=== PATIENT | male | born 1950 | race Caucasian/White ===

== ENCOUNTER 2024-01-10 11:19 | Emergency (ER) | payer MEDICARE ==
[~2024-01-10] VITALS: Ht 180.3 cm; Wt 83.0 kg
[2024-01-10 11:54] LABS: BASOPHILS # (AUTO) 0.1 X10'3 (0-0.2); EOSINOPHILS # (AUTO) 0.2 X10'3 (0-0.9); EOSINOPHILS % (AUTO) 2.1 % (0-6); HEMATOCRIT 41.5 % (42.0-52.0); HEMOGLOBIN 13.8 g/dl (14.0-17.9); LYMPHOCYTES # (AUTO) 1.6 X10'3 (1.1-4.8); LYMPHOCYTES % (AUTO) 17.7 % (21-51); MEAN CORPUSCULAR HEMOGLOBIN 30.8 PG (27.0-31.0); MEAN CORPUSCULAR HGB CONC 33.2 g/dL (33.0-36.5); MEAN CORPUSCULAR VOLUME 92.8 FL (78-98); MEAN PLATELET VOLUME 9.1 FL (7.4-10.4); MONOCYTES # (AUTO) 0.9 X10'3 (0-0.9); MONOCYTES % (AUTO) 10.2 % (2-12); NEUTROPHILS # (AUTO) 6.3 X10'3 (1.8-7.7); PLATELET COUNT 202 X10'3 (140-440); RED BLOOD COUNT 4.48 X10'6 (4.70-6.10); RED CELL DISTRIBUTION WIDTH 14.4 % (11.5-14.5); WHITE BLOOD COUNT 9.2 X10'3 (4.5-11.0)
[2024-01-10] MEDS: diltiazem 5mg/ml 5ml inj. IV ONE (11:55)
[2024-01-10 12:13] LABS: ALBUMIN 3.8 G/DL (3.4-5.0); ANION GAP 10 (8-16); BLOOD UREA NITROGEN 22 MG/DL (7-18); BUN/CREATININE RATIO 28.6 (10.0-20.0); CALCIUM 8.9 MG/DL (8.5-10.1); CHLORIDE 106 MMOL/L (99-107); CREATININE 0.77 MG/DL (0.60-1.10); GLUCOSE 100 MG/DL (70-104); POTASSIUM 3.9 MMOL/L (3.5-5.1); PRO BRAIN NATRIURETIC PEPTIDE 3645 PG/ML (0-125); SODIUM 140 MMOL/L (135-145); TOTAL CARBON DIOXIDE 24.1 MMOL/L (24-32); eCRCL 92 ML/MIN; eGFR > 90 ML/MIN
[2024-01-10] MEDS ORDERED: DILT-88 PO (12:53)
[2024-01-10] MEDS ORDERED: RIVA20TA PO (12:53)
[2024-01-10] MEDS: rivaroxaban 20mg tablet PO ONE (13:18)
[2024-01-10] MEDS: diltiazem SR 60mg capsule (twice daily) PO ONE (13:18)
[2024-01-10 13:19] VITALS: BP 119/90; PULSE 140; RESP 20; TEMP 98.4; O2SAT 96
== END 2024-01-10 13:26 | disposition home or self-care (01) ==
LOC: ER 11:20
DX: I48.20 Chronic atrial fibrillation, unspecified (principal)
CPT/HCPCS: 36415; 71045; 80048; 83735; 83880; 84484; 85025; 93005; 96374; 99285; J3490

== ENCOUNTER 2024-01-14 09:54 | Inpatient (IN) | payer MEDICARE ==
[~2024-01-14] VITALS: Ht 177.8 cm; Wt 71.6 kg
[~2024-01-14 09:54] MED LIST: DILT-88 PO; RIVA20TA PO
[2024-01-14 10:28] LABS: BASOPHILS # (AUTO) 0.1 X10'3 (0-0.2); BASOPHILS % (AUTO) 1.4 % (0-1); EOSINOPHILS # (AUTO) 0.2 X10'3 (0-0.9); EOSINOPHILS % (AUTO) 3.5 % (0-6); LYMPHOCYTES # (AUTO) 1.1 X10'3 (1.1-4.8); LYMPHOCYTES % (AUTO) 16.6 % (21-51); MEAN CORPUSCULAR HEMOGLOBIN 30.6 PG (27.0-31.0); MEAN CORPUSCULAR HGB CONC 33.2 g/dL (33.0-36.5); MEAN CORPUSCULAR VOLUME 92.3 FL (78-98); MEAN PLATELET VOLUME 8.9 FL (7.4-10.4); MONOCYTES # (AUTO) 0.7 X10'3 (0-0.9); MONOCYTES % (AUTO) 10.3 % (2-12); NEUTROPHILS # (AUTO) 4.6 X10'3 (1.8-7.7); NEUTROPHILS % (AUTO) 68.2 % (42-75); PLATELET COUNT 232 X10'3 (140-440); RED BLOOD COUNT 4.55 X10'6 (4.70-6.10); RED CELL DISTRIBUTION WIDTH 14.7 % (11.5-14.5); WHITE BLOOD COUNT 6.8 X10'3 (4.5-11.0)
[2024-01-14 11:13] LABS: ALANINE AMINOTRANSFERASE 67 U/L (12-78); ALBUMIN 3.5 G/DL (3.4-5.0); ALKALINE PHOSPHATASE 76 IU/L (46-116); ANION GAP 10 (8-16); ASPARTATE AMINO TRANSFERASE 38 U/L (10-37); BILIRUBIN,TOTAL 0.7 MG/DL (0.1-1.0); BLOOD UREA NITROGEN 21 MG/DL (7-18); BUN/CREATININE RATIO 29.6 (10.0-20.0); CALCIUM 9.1 MG/DL (8.5-10.1); CHLORIDE 107 MMOL/L (99-107); CREATININE 0.71 MG/DL (0.60-1.10); GLUCOSE 105 MG/DL (70-104); POTASSIUM 3.9 MMOL/L (3.5-5.1); PRO BRAIN NATRIURETIC PEPTIDE 1390 PG/ML (0-125); SODIUM 139 MMOL/L (135-145); TOTAL CARBON DIOXIDE 21.6 MMOL/L (24-32); TOTAL PROTEIN 7.1 G/DL (6.4-8.2); eCRCL 100 ML/MIN; eGFR > 90 ML/MIN
[2024-01-14] MEDS: diltiazem 5mg/ml 5ml inj. IV ONE ×2 (11:20→13:02)
[2024-01-14] MEDS: magnesium sulf-water 2g/50mL 50 ML IV ONE (11:21)
[2024-01-14] MEDS: diltiazem-NS 100mg/100ml 100 ML IV SCH ×2 (13:07→18:36)
[2024-01-14] MEDS: enoxaparin 100mg/ml syringe SUBCUT ONE (13:15)
[2024-01-14] MEDS ORDERED: potassium Cl 40MEQ/1/2NS 520ml 520 ML IV PRN (13:35)
[2024-01-14] MEDS ORDERED: magnesium hydroxide 30ml (MOM) UD suspension PO PRN (13:35)
[2024-01-14] MEDS ORDERED: mag hydrox/Alum hydrox/simeth 30ml oral suspension PO PRN (13:35)
[2024-01-14] MEDS ORDERED: magnesium Cl slow-release 64mg tablet PO PRN (13:35)
[2024-01-14] MEDS ORDERED: magnesium sulf-water 2g/50mL 50 ML IV PRN (13:35)
[2024-01-14] MEDS ORDERED: ondansetron/PF 4mg/2ml inj IV PRN (13:35)
[2024-01-14] MEDS ORDERED: magnesium sulf-water 4G/100mL 100 ML IV PRN (13:35)
[2024-01-14] MEDS ORDERED: acetaminophen 325mg tablet PO PRN (13:35)
[2024-01-14] MEDS ORDERED: potassium Cl 20 mEq SR tablet PO PRN ×2 (13:35)
[2024-01-14] MEDS: PERFLUTREN PROTEIN-A MICROSPHR (Optison) 0.22 MG/ML 3ML VIAL IV ONE (13:40)
[2024-01-14] MEDS ORDERED: furosemide 10 MG/1 ML 10ml inj IV SCH (14:05)
--- NOTE | 2024-01-14 14:52 | NUR ---
spoke to Gerber Campa, received heart healthy diet. no fluid restriction
[2024-01-14] MEDS ORDERED: RIVA20TA PO (16:56)
[2024-01-14] MEDS ORDERED: DILT-35 PO (16:56)
--- NOTE | 2024-01-14 17:07 | NUR ---
CONTACTED RESIDENT TISH REGARDING DILTIAZEM GTT BEING DC'D. PER HAI WINSTON DC'D AND PT WILL BE STARTED ON METOPROLOL PO. I ASKED FOR CLARIFICATION OF ORDERS CONSIDERING PT IS IN AFIB W/RVR AND HIS METOPROLOL ORDER IS SCHEDULED FOR TOMORROW, I AM CONCERNED HIS RATE WILL NOT BE CONTROLLED WITH THIS ORDER. RESIDENT GAVE VERBAL ORDER TO CONTINUE DILTIAZEM GTT UNTIL TOMORROW MORNING AND START METOPROLOL TOMORROW MORNING. I REQUESTED RESIDENT TO PLEASE ENTER THAT ORDER.
[2024-01-14 17:17] LABS: CHOL/HDL RATIO 2.8 (0.00-4.99); CHOLESTEROL 202 MG/DL (0-200); HDL CHOLESTEROL 71 MG/DL (35-60); LDL CHOLESTEROL 115 MG/DL (50-100); THYROID STIMULATING HORMONE 1.82 ulU/ml (0.34-4.50); TRIGLYCERIDES 53 MG/DL (20-135)
[2024-01-14 17:21] LABS: HEMOGLOBIN A1C 5.4 % (4.5-6.2)
[2024-01-14] MEDS ORDERED: diltiazem-NS 100mg/100ml 100 ML IV SCH (17:55)
[2024-01-14] MEDS: docusate sod 100mg capsule PO SCH (19:02)
[2024-01-14] MEDS: K and/or MAG REPLACEMENT MC SCH (19:02)
[2024-01-14] MEDS ORDERED: heparin, porcine 5000 units/ml vial SQ SCH (20:00)
[2024-01-14] MEDS ORDERED: apixaban 2.5mg tablet PO SCH (20:00)
[2024-01-14] MEDS ORDERED: metoprolol succinate 25mg (24-HOUR) SR. Tablet PO SCH (20:00)
[2024-01-14] MEDS: furosemide 20 MG/2 ML vial IV SCH (20:42)
[2024-01-15] VITALS (11 sets, daily range): BP systolic 95–128; BP diastolic 64–83; PULSE 87–114; RESP 16–23; TEMP 97.2–97.9; O2SAT 92–96
[2024-01-15 06:16] LABS: BASOPHILS # (AUTO) 0.1 X10'3 (0-0.2); BASOPHILS % (AUTO) 1.3 % (0-1); EOSINOPHILS # (AUTO) 0.3 X10'3 (0-0.9); EOSINOPHILS % (AUTO) 5.1 % (0-6); HEMATOCRIT 37.3 % (42.0-52.0); HEMOGLOBIN 12.7 g/dl (14.0-17.9); LYMPHOCYTES # (AUTO) 1.3 X10'3 (1.1-4.8); LYMPHOCYTES % (AUTO) 18.6 % (21-51); MEAN CORPUSCULAR HEMOGLOBIN 31.1 PG (27.0-31.0); MEAN CORPUSCULAR VOLUME 91.5 FL (78-98); MEAN PLATELET VOLUME 9.1 FL (7.4-10.4); MONOCYTES # (AUTO) 0.7 X10'3 (0-0.9); MONOCYTES % (AUTO) 11.1 % (2-12); NEUTROPHILS # (AUTO) 4.3 X10'3 (1.8-7.7); NEUTROPHILS % (AUTO) 63.9 % (42-75); PLATELET COUNT 202 X10'3 (140-440); RED BLOOD COUNT 4.08 X10'6 (4.70-6.10); RED CELL DISTRIBUTION WIDTH 14.5 % (11.5-14.5); WHITE BLOOD COUNT 6.7 X10'3 (4.5-11.0)
--- NOTE | 2024-01-15 06:30 | NUR ---
Patient in room PCU 3017. I have received report from Bri PERDOMO and had the opportunity to ask questions and assume patient care. Addendum: 01/15/24 at 0648 by Esha Morgan RN Amended: Links added.
[2024-01-15 06:32] LABS: ANION GAP 10 (8-16); BLOOD UREA NITROGEN 22 MG/DL (7-18); BUN/CREATININE RATIO 25.9 (10.0-20.0); CALCIUM 8.7 MG/DL (8.5-10.1); CHLORIDE 107 MMOL/L (99-107); CREATININE 0.85 MG/DL (0.60-1.10); GLUCOSE 92 MG/DL (70-104); SODIUM 140 MMOL/L (135-145); TOTAL CARBON DIOXIDE 23.1 MMOL/L (24-32); eCRCL 84 ML/MIN; eGFR 89 ML/MIN
--- NOTE | 2024-01-15 06:40 | NUR ---
Problems reprioritized. Patient report given, questions answered & plan of care reviewed with LEANNE Alfaro.
[2024-01-15] MEDS ORDERED: diltiazem CD 120mg capsule (once-daily) PO SCH (08:00)
[2024-01-15] MEDS ORDERED: metoprolol succinate 25mg (24-HOUR) SR. Tablet PO SCH (08:00)
[2024-01-15] MEDS: rivaroxaban 20mg tablet PO SCH (08:10)
[2024-01-15] MEDS: metoprolol succinate 25mg (24-HOUR) SR. Tablet PO SCH (08:10)
[2024-01-15 08:37] LABS: MAGNESIUM 2.1 MG/DL (1.5-2.4)
--- NOTE | 2024-01-15 18:22 | NUR ---
Problems reprioritized. Patient report given, questions answered & plan of care reviewed with Bri PERDOMO. Addendum: 01/15/24 at 1822 by Esha Morgan RN Amended: Links added.
[2024-01-15] MEDS: furosemide 40mg tablet PO SCH (19:48)
[2024-01-15] MEDS: spironolactone 25 MG tablet PO SCH (19:49)
[2024-01-16] VITALS (8 sets, daily range): BP systolic 100–129; BP diastolic 71–80; PULSE 90–124; RESP 16–19; TEMP 97.5–98.6; O2SAT 93–99
--- NOTE | 2024-01-16 06:13 | NUR ---
Patient in room PCU 3017. I have received report from Bri PERDOMO and had the opportunity to ask questions and assume patient care. Addendum: 01/16/24 at 0614 by Esha Morgan RN Amended: Links added.
--- NOTE | 2024-01-16 06:30 | NUR ---
Problems reprioritized. Patient report given, questions answered & plan of care reviewed with LEANNE Balbuena.
[2024-01-16 07:42] LABS: BASOPHILS # (AUTO) 0.1 X10'3 (0-0.2); BASOPHILS % (AUTO) 1.1 % (0-1); EOSINOPHILS # (AUTO) 0.3 X10'3 (0-0.9); EOSINOPHILS % (AUTO) 4.2 % (0-6); HEMATOCRIT 41.4 % (42.0-52.0); LYMPHOCYTES # (AUTO) 1.3 X10'3 (1.1-4.8); LYMPHOCYTES % (AUTO) 19.2 % (21-51); MEAN CORPUSCULAR HEMOGLOBIN 31.8 PG (27.0-31.0); MEAN CORPUSCULAR HGB CONC 33.9 g/dL (33.0-36.5); MEAN CORPUSCULAR VOLUME 93.8 FL (78-98); MEAN PLATELET VOLUME 9.1 FL (7.4-10.4); MONOCYTES # (AUTO) 0.7 X10'3 (0-0.9); MONOCYTES % (AUTO) 10.8 % (2-12); NEUTROPHILS # (AUTO) 4.5 X10'3 (1.8-7.7); NEUTROPHILS % (AUTO) 64.7 % (42-75); PLATELET COUNT 237 X10'3 (140-440); RED BLOOD COUNT 4.42 X10'6 (4.70-6.10); RED CELL DISTRIBUTION WIDTH 14.7 % (11.5-14.5); WHITE BLOOD COUNT 6.9 X10'3 (4.5-11.0)
[2024-01-16] MEDS: atorvastatin 20mg tablet PO SCH (08:15)
[2024-01-16 08:18] LABS: ALBUMIN 3.2 G/DL (3.4-5.0); ANION GAP 8 (8-16); BLOOD UREA NITROGEN 22 MG/DL (7-18); BUN/CREATININE RATIO 24.7 (10.0-20.0); CALCIUM 9.1 MG/DL (8.5-10.1); CHLORIDE 106 MMOL/L (99-107); CREATININE 0.89 MG/DL (0.60-1.10); GLUCOSE 92 MG/DL (70-104); MAGNESIUM 2.2 MG/DL (1.5-2.4); POTASSIUM 4.1 MMOL/L (3.5-5.1); SODIUM 142 MMOL/L (135-145); TOTAL CARBON DIOXIDE 28.3 MMOL/L (24-32); eCRCL 80 ML/MIN; eGFR 84 ML/MIN
--- NOTE | 2024-01-16 18:35 | NUR ---
Problems reprioritized. Patient report given, questions answered & plan of care reviewed with Daniela PERDOMO. Addendum: 01/16/24 at 1836 by Esha Morgan RN Amended: Links added.
[2024-01-17] VITALS (8 sets, daily range): BP systolic 92–104; BP diastolic 40–74; PULSE 92–107; RESP 13–20; TEMP 97.6–98.1; O2SAT 94–97
--- NOTE | 2024-01-17 06:16 | NUR ---
Patient in room U 3017. I have received report from Daniela PERDOMO and had the opportunity to ask questions and assume patient care. Addendum: 01/17/24 at 0616 by Esha Morgan RN Amended: Links added.
[2024-01-17 07:38] LABS: BASOPHILS # (AUTO) 0.1 X10'3 (0-0.2); EOSINOPHILS # (AUTO) 0.4 X10'3 (0-0.9); LYMPHOCYTES # (AUTO) 1.5 X10'3 (1.1-4.8); MEAN PLATELET VOLUME 9.1 FL (7.4-10.4); NEUTROPHILS # (AUTO) 4.4 X10'3 (1.8-7.7)
[2024-01-17 07:40] LABS: BASOPHILS % (AUTO) 1.2 % (0-1); EOSINOPHILS % (AUTO) 4.9 % (0-6); HEMATOCRIT 39.2 % (42.0-52.0); HEMOGLOBIN 13.3 g/dl (14.0-17.9); LYMPHOCYTES % (AUTO) 21.4 % (21-51); MEAN CORPUSCULAR HEMOGLOBIN 31.4 PG (27.0-31.0); MEAN CORPUSCULAR VOLUME 92.5 FL (78-98); MONOCYTES # (AUTO) 0.8 X10'3 (0-0.9); NEUTROPHILS % (AUTO) 61.5 % (42-75); PLATELET COUNT 230 X10'3 (140-440); RED BLOOD COUNT 4.24 X10'6 (4.70-6.10); RED CELL DISTRIBUTION WIDTH 14.5 % (11.5-14.5); WHITE BLOOD COUNT 7.2 X10'3 (4.5-11.0)
[2024-01-17 08:05] LABS: ALBUMIN 3.1 G/DL (3.4-5.0); ANION GAP 8 (8-16); BLOOD UREA NITROGEN 23 MG/DL (7-18); BUN/CREATININE RATIO 27.1 (10.0-20.0); CHLORIDE 107 MMOL/L (99-107); CREATININE 0.85 MG/DL (0.60-1.10); GLUCOSE 89 MG/DL (70-104); SODIUM 141 MMOL/L (135-145); TOTAL CARBON DIOXIDE 26.3 MMOL/L (24-32); eCRCL 84 ML/MIN; eGFR 89 ML/MIN
[2024-01-17] MEDS: metoprolol succinate 25mg (24-HOUR) SR. Tablet PO SCH (09:17)
[2024-01-17] MEDS: enoxaparin 40mg/0.4ml syringe SUBCUT SCH (09:18)
--- NOTE | 2024-01-17 11:43 | NUR ---
Dr Altamirano informed of Pt SBP 96 and the inability to administer Lasix and Aldactone. She requested I recheck BP at 1400. If SBP greater than 100 we can give these meds.
[2024-01-17] MEDS: spironolactone 25 MG tablet PO SCH (13:48)
[2024-01-17] MEDS: furosemide 40mg tablet PO SCH (13:48)
--- NOTE | 2024-01-17 18:39 | NUR ---
Problems reprioritized. Patient report given, questions answered & plan of care reviewed with Sean PERDOMO. Addendum: 01/17/24 at 1839 by Esha Morgan RN Amended: Links added.
[2024-01-18] VITALS (8 sets, daily range): BP systolic 90–111; BP diastolic 52–76; PULSE 65–116; RESP 13–20; TEMP 97.5–98.8; O2SAT 92–97
--- NOTE | 2024-01-18 07:10 | NUR ---
Patient in room PCU 3017. I have received report from LEANNE Ferrer and had the opportunity to ask questions and assume patient care.
--- NOTE | 2024-01-18 07:10 | NUR ---
Patient in room PCU 3017. I have received report from LEANNE Ferrer and had the opportunity to ask questions and assume patient care.
[2024-01-18 07:26] LABS: BASOPHILS # (AUTO) 0.1 X10'3 (0-0.2); BASOPHILS % (AUTO) 1.5 % (0-1); EOSINOPHILS # (AUTO) 0.3 X10'3 (0-0.9); EOSINOPHILS % (AUTO) 4.6 % (0-6); HEMOGLOBIN 13.4 g/dl (14.0-17.9); LYMPHOCYTES # (AUTO) 1.4 X10'3 (1.1-4.8); LYMPHOCYTES % (AUTO) 20.5 % (21-51); MEAN CORPUSCULAR HGB CONC 33.4 g/dL (33.0-36.5); MEAN CORPUSCULAR VOLUME 92.7 FL (78-98); MONOCYTES # (AUTO) 0.8 X10'3 (0-0.9); MONOCYTES % (AUTO) 11.9 % (2-12); NEUTROPHILS # (AUTO) 4.2 X10'3 (1.8-7.7); NEUTROPHILS % (AUTO) 61.5 % (42-75); PLATELET COUNT 219 X10'3 (140-440); RED BLOOD COUNT 4.32 X10'6 (4.70-6.10); RED CELL DISTRIBUTION WIDTH 14.7 % (11.5-14.5); WHITE BLOOD COUNT 6.9 X10'3 (4.5-11.0)
[2024-01-18 07:53] LABS: ALBUMIN 3.1 G/DL (3.4-5.0); ANION GAP 7 (8-16); BLOOD UREA NITROGEN 23 MG/DL (7-18); BUN/CREATININE RATIO 25.8 (10.0-20.0); CALCIUM 8.9 MG/DL (8.5-10.1); CHLORIDE 106 MMOL/L (99-107); CREATININE 0.89 MG/DL (0.60-1.10); GLUCOSE 93 MG/DL (70-104); MAGNESIUM 2.1 MG/DL (1.5-2.4); POTASSIUM 3.7 MMOL/L (3.5-5.1); SODIUM 141 MMOL/L (135-145); TOTAL CARBON DIOXIDE 27.9 MMOL/L (24-32); eCRCL 80 ML/MIN; eGFR 84 ML/MIN
--- NOTE | 2024-01-18 19:20 | NUR ---
Problems reprioritized. Patient report given, questions answered & plan of care reviewed with LEANNE Ferrer.
[2024-01-19] VITALS (7 sets, daily range): BP systolic 93–105; BP diastolic 64–77; PULSE 107–116; RESP 15–19; TEMP 96.8–97.8; O2SAT 95–98
--- NOTE | 2024-01-19 06:48 | NUR ---
Patient in room PCU 3017. I have received report from Nabil PERDOMO and had the opportunity to ask questions and assume patient care.
[2024-01-19 07:00] LABS: BASOPHILS # (AUTO) 0.1 X10'3 (0-0.2); BASOPHILS % (AUTO) 1.4 % (0-1); EOSINOPHILS # (AUTO) 0.3 X10'3 (0-0.9); EOSINOPHILS % (AUTO) 4.3 % (0-6); HEMATOCRIT 39.5 % (42.0-52.0); HEMOGLOBIN 13.5 g/dl (14.0-17.9); LYMPHOCYTES # (AUTO) 1.7 X10'3 (1.1-4.8); LYMPHOCYTES % (AUTO) 22.2 % (21-51); MEAN CORPUSCULAR HEMOGLOBIN 31.6 PG (27.0-31.0); MEAN CORPUSCULAR HGB CONC 34.1 g/dL (33.0-36.5); MEAN CORPUSCULAR VOLUME 92.6 FL (78-98); MEAN PLATELET VOLUME 8.7 FL (7.4-10.4); MONOCYTES # (AUTO) 0.8 X10'3 (0-0.9); MONOCYTES % (AUTO) 10.2 % (2-12); NEUTROPHILS # (AUTO) 4.7 X10'3 (1.8-7.7); NEUTROPHILS % (AUTO) 61.9 % (42-75); PLATELET COUNT 232 X10'3 (140-440); RED BLOOD COUNT 4.27 X10'6 (4.70-6.10); RED CELL DISTRIBUTION WIDTH 14.4 % (11.5-14.5); WHITE BLOOD COUNT 7.5 X10'3 (4.5-11.0)
[2024-01-19 07:47] LABS: ALBUMIN 3.2 G/DL (3.4-5.0); ANION GAP 8 (8-16); BLOOD UREA NITROGEN 25 MG/DL (7-18); BUN/CREATININE RATIO 23.6 (10.0-20.0); CHLORIDE 104 MMOL/L (99-107); CREATININE 1.06 MG/DL (0.60-1.10); GLUCOSE 93 MG/DL (70-104); MAGNESIUM 2.2 MG/DL (1.5-2.4); POTASSIUM 3.9 MMOL/L (3.5-5.1); SODIUM 141 MMOL/L (135-145); TOTAL CARBON DIOXIDE 29.1 MMOL/L (24-32); eCRCL 67 ML/MIN; eGFR 69 ML/MIN
[2024-01-19] MEDS ORDERED: LIDOcaine 1% 30ml preserv. free vial ONE (13:05)
[2024-01-19] MEDS ORDERED: fentaNYL/PF 50MCG/1 ML 2ML syringe ONE (13:06)
[2024-01-19] MEDS ORDERED: iohexol 350 MG/ML 50ML vial IV ONE ×2 (13:06→14:24)
[2024-01-19] MEDS ORDERED: midazolam 1 mg/ML 2ml injection ONE (13:06)
[2024-01-19] MEDS ORDERED: iohexol 350MG/ML 100ml bottle IV ONE (13:06)
[2024-01-19] MEDS ORDERED: diphenhydrAMINE 50 mg/ml inj ONE (14:05)
[2024-01-19] MEDS ORDERED: metoprolol tartrate 1mg/ml inj IV ONE (14:13)
[2024-01-19] MEDS ORDERED: HYDROmorphone 1 mg/ml syringe ONE (14:42)
--- NOTE | 2024-01-19 15:37 | NUR ---
Initial: Pt admit for acute heart failure, severe mitral regurgitation, mitral valve prolapse, and nonvalvular A-fib per EMR. Pt is currently NPO for cardiac catheterization today and prior was on heart healthy with average PO intake of 56% x 10 meals. PO intake met ~69% of estimated kcal need and ~66% of estimated protein needs. LBM on 01/17 and receiving routine bowel care per EMR. Limited interventions able to implement at this time due to NPO status. Will continue to monitor and make recommendations as appropriate. Recommendations: 1.Resume heart healthy diet once medically appropriate 2.Consider Ensure Enlive TIDWM with diet advancement;adjust as appropriate 3.Routine bowel care 4.Weekly scaled wts Addendum: 01/19/24 at [address] Amended: Links added.
[2024-01-19] MEDS: normal saline 1000ml 1,000 ML IV SCH (15:50)
[2024-01-19] MEDS ORDERED: OXAZEpam 15mg capsule PO PRN (15:50)
[2024-01-19] MEDS ORDERED: HYDROcodone/acetaminophen 5mg/325mg tablet PO PRN (15:50)
[2024-01-19] MEDS ORDERED: proCHLORperazine 10 MG/2 ml inj IV PRN (15:50)
[2024-01-19] MEDS ORDERED: nitroGLYCERIN 0.4mg SUBLingual tab SL PRN (15:50)
[2024-01-19] MEDS ORDERED: ondansetron/PF 4mg/2ml inj IV PRN (15:50)
[2024-01-19] MEDS: HYDROcodone/acetaminophen 10/325mg tab PO PRN (17:16)
[2024-01-20] VITALS (9 sets, daily range): BP systolic 92–105; BP diastolic 61–77; PULSE 98–127; RESP 14–20; TEMP 97.3–98.2; O2SAT 96–99
--- NOTE | 2024-01-20 06:35 | NUR ---
Problems reprioritized. Patient report given, questions answered & plan of care reviewed with LEANNE Newman.
--- NOTE | 2024-01-20 06:51 | NUR ---
Patient in room PCU 3017. I have received report from Zahira PERDOMO and had the opportunity to ask questions and assume patient care.
[2024-01-20 07:30] LABS: BASOPHILS # (AUTO) 0.1 X10'3 (0-0.2); EOSINOPHILS # (AUTO) 0.2 X10'3 (0-0.9); EOSINOPHILS % (AUTO) 2.5 % (0-6); HEMATOCRIT 39.7 % (42.0-52.0); HEMOGLOBIN 13.1 g/dl (14.0-17.9); LYMPHOCYTES # (AUTO) 1.7 X10'3 (1.1-4.8); LYMPHOCYTES % (AUTO) 20.7 % (21-51); MEAN CORPUSCULAR HEMOGLOBIN 30.8 PG (27.0-31.0); MEAN CORPUSCULAR VOLUME 93.3 FL (78-98); MEAN PLATELET VOLUME 9.2 FL (7.4-10.4); MONOCYTES # (AUTO) 0.8 X10'3 (0-0.9); NEUTROPHILS # (AUTO) 5.6 X10'3 (1.8-7.7); NEUTROPHILS % (AUTO) 65.8 % (42-75); PLATELET COUNT 216 X10'3 (140-440); RED BLOOD COUNT 4.25 X10'6 (4.70-6.10); RED CELL DISTRIBUTION WIDTH 14.4 % (11.5-14.5); WHITE BLOOD COUNT 8.5 X10'3 (4.5-11.0)
[2024-01-20 07:46] LABS: ALANINE AMINOTRANSFERASE 43 U/L (12-78); ALBUMIN 3.2 G/DL (3.4-5.0); ALBUMIN/GLOBULIN RATIO 1.1 (1.1-1.5); ALKALINE PHOSPHATASE 57 IU/L (46-116); ANION GAP 7 (8-16); ASPARTATE AMINO TRANSFERASE 28 U/L (10-37); BILIRUBIN,TOTAL 0.7 MG/DL (0.1-1.0); BLOOD UREA NITROGEN 26 MG/DL (7-18); BUN/CREATININE RATIO 23.4 (10.0-20.0); CALCIUM 8.8 MG/DL (8.5-10.1); CHLORIDE 107 MMOL/L (99-107); CREATININE 1.11 MG/DL (0.60-1.10); GLUCOSE 84 MG/DL (70-104); POTASSIUM 4.1 MMOL/L (3.5-5.1); SODIUM 142 MMOL/L (135-145); TOTAL CARBON DIOXIDE 28.2 MMOL/L (24-32); TOTAL PROTEIN 6.2 G/DL (6.4-8.2); eCRCL 64 ML/MIN; eGFR 65 ML/MIN
[2024-01-20] MEDS: furosemide 40mg tablet PO SCH (08:40)
[2024-01-20] MEDS: spironolactone 25 MG tablet PO SCH (12:40)
[2024-01-20] MEDS ORDERED: potassium Cl 20mEq/100mL bag 100 ML IV PRN (13:30)
[2024-01-20] MEDS ORDERED: potassium Cl 40MEQ/1/2NS 520ml 520 ML IV PRN (13:30)
[2024-01-20] MEDS: MESSAGE TO NURSING PO ONE ×4 (13:30)
[2024-01-20] MEDS ORDERED: potassium Cl 20 mEq SR tablet PO PRN (13:30)
[2024-01-20] MEDS ORDERED: potassium CL 10mEq/100ml bag 100 ML IV PRN (13:30)
[2024-01-20] MEDS ORDERED: magnesium sulf-water 2g/50mL 50 ML IV PRN (13:30)
[2024-01-20] MEDS ORDERED: potassium Cl 40MEQ/270ML bag 250 ML IV PRN (13:30)
[2024-01-20] MEDS ORDERED: magnesium sulf-water 4G/100mL 100 ML IV PRN (13:30)
[2024-01-20 14:30] LABS: APTT 26 SECONDS (22-32); INR 1.2 INR; PROTHROMBIN TIME 12.4 SECONDS (9.0-12.0)
[2024-01-20 15:20] LABS: ABG HCO3 24.3 mmol/L (21.0-28.0); ABG OXYGEN SATURATION 97.8 % (94.0-98.0); ABG PCO2 (T) 28.3 mmHg (35.0-48.0); ABG PH (T) 7.551 (7.350-7.450); ABG PO2 (T) 95.1 mmHg (83.0-108.0); ALLEN'S TEST POSITIVE; FCOHb 1.2 % (0.5-1.5); FHHb 2.2 % (0.0-5.0); FMetHb 0.3 % (0.0-1.5); FO2Hb 96.3 % (94.0-98.0); MODE ROOM AIR; TOTAL HEMOGLOBIN 14.8 G/dl (13.5-17.5)
[2024-01-20 17:38] LABS: BILIRUBIN,URINE NEGATIVE (Neg); CLARITY,URINE CLEAR (Clear); COLOR,URINE YELLOW (Yellow); GLUCOSE, URINE NEGATIVE (Neg); KETONES,URINE NEGATIVE (Neg); LEUKOCYTE ESTERASE ,URINE NEGATIVE (Neg); NITRITES, URINE NEGATIVE (Neg); OCCULT BLOOD,URINE NEGATIVE (Neg); PH,URINE 6.5 (4.8-8.0); PROTEIN,URINE NEGATIVE (Neg)
[2024-01-20 17:47] LABS: UA COLLECTION TYPE NON-SPECIFIED
--- NOTE | 2024-01-20 18:46 | NUR ---
Problems reprioritized. Patient report given, questions answered & plan of care reviewed with Zahira PERDOMO.
[2024-01-20] MEDS: heparin, porcine 5000 units/ml vial SQ SCH (20:04)
[2024-01-21] VITALS (24 sets, daily range): BP systolic 89–130; BP diastolic 46–84; PULSE 68–109; RESP 9–20; TEMP 98; O2SAT 93–100
[2024-01-21] MEDS: mupirocin 2% nasal ointment 1gm UD NS SCH ×2 (01:07→20:32)
[2024-01-21] MEDS: cefazolin 2gm/D5W 100mL 100 ML IV ONE (05:30)
[2024-01-21] MEDS: vancomycin/NS 1 GM ADD-VANTAGE 250 ML IV ONE (05:30)
--- NOTE | 2024-01-21 06:15 | NUR ---
Problems reprioritized. Patient report given, questions answered & plan of care reviewed with LEANNE Newman.
[2024-01-21 07:03] LABS: BASOPHILS # (AUTO) 0.1 X10'3 (0-0.2); BASOPHILS % (AUTO) 0.9 % (0-1); EOSINOPHILS # (AUTO) 0.2 X10'3 (0-0.9); HEMATOCRIT 39.9 % (42.0-52.0); HEMOGLOBIN 13.5 g/dl (14.0-17.9); LYMPHOCYTES # (AUTO) 1.2 X10'3 (1.1-4.8); MEAN CORPUSCULAR HEMOGLOBIN 31.7 PG (27.0-31.0); MEAN CORPUSCULAR VOLUME 93.4 FL (78-98); MEAN PLATELET VOLUME 9.5 FL (7.4-10.4); MONOCYTES # (AUTO) 0.8 X10'3 (0-0.9); MONOCYTES % (AUTO) 9.8 % (2-12); NEUTROPHILS # (AUTO) 6.3 X10'3 (1.8-7.7); NEUTROPHILS % (AUTO) 73.3 % (42-75); PLATELET COUNT 202 X10'3 (140-440); RED BLOOD COUNT 4.27 X10'6 (4.70-6.10); RED CELL DISTRIBUTION WIDTH 14.7 % (11.5-14.5); WHITE BLOOD COUNT 8.6 X10'3 (4.5-11.0)
[2024-01-21 07:08] LABS: INR 1.1 INR
[2024-01-21 07:10] LABS: ALBUMIN 3.3 G/DL (3.4-5.0); ANION GAP 7 (8-16); BLOOD UREA NITROGEN 23 MG/DL (7-18); BUN/CREATININE RATIO 26.4 (10.0-20.0); CALCIUM 8.9 MG/DL (8.5-10.1); CHLORIDE 108 MMOL/L (99-107); CREATININE 0.87 MG/DL (0.60-1.10); GLUCOSE 100 MG/DL (70-104); SODIUM 142 MMOL/L (135-145); TOTAL CARBON DIOXIDE 26.6 MMOL/L (24-32); eCRCL 82 ML/MIN; eGFR 86 ML/MIN
[2024-01-21] MEDS: furosemide 40mg tablet PO SCH (07:48)
[2024-01-21] MEDS ORDERED: MIDAZolam 1 MG/ML 5ML VIAL ONE (09:28)
[2024-01-21] MEDS ORDERED: propofol inj 20 ML IV ONE (09:29)
[2024-01-21] MEDS ORDERED: SUfentanil 50mcg/ml 1ml amp IV ONE (09:29)
[2024-01-21] MEDS ORDERED: INSULIN REGULAR IV SCH (09:30)
[2024-01-21] MEDS ORDERED: HUMAN IV SCH (09:30)
[2024-01-21] MEDS ORDERED: NORMAL SALINE IV SCH (09:30)
[2024-01-21] MEDS ORDERED: rocuronium 10mg/ml inj IV ONE ×3 (09:32→11:38)
[2024-01-21] MEDS ORDERED: Insulin Reg/NS 100units/100mL 100 ML IV SCH (09:34)
[2024-01-21] MEDS ORDERED: ePHEDrine 50MG/ML INJ. ONE (09:43)
[2024-01-21] MEDS: LORazepam 2 mg/ml vial IV ONE (09:46)
--- NOTE | 2024-01-21 09:51 | NUR ---
Pt off floor to [facility]OR.
[2024-01-21] MEDS ORDERED: sevoflurane 250ml liquid IH ONE (09:54)
[2024-01-21] MEDS: MESSAGE TO NURSING PO ONE (10:00)
[2024-01-21 10:40] LABS: ABG HCO3 24.8 mmol/L (21.0-28.0); ABG OXYGEN SATURATION 99.2 % (94.0-98.0); ABG PCO2 40.9 mmHg (35.0-48.0); ABG PO2 193.5 mmHg (83.0-108.0); CL (ABG) 105 mmol/L (98-107); FCOHb 0.2 % (0.5-1.5); FHHb 0.8 % (0.0-5.0); GLUCOSE (ABG) 151 mg/dl (65-95); IONIZED CA (ABG) 1.13 mmol/L (1.15-1.33); K (ABG) 3.9 mmol/L (3.40-4.50); TOTAL HEMOGLOBIN 13.5 G/dl (13.5-17.5)
[2024-01-21 11:10] LABS: ABG BASE EXCESS VENOUS -0.7 mmol/L (-2.0-3.0); ABG HCO3 VENOUS 24.7 mmol/L (22.0-29.0); ABG OXYGEN SATURATION VENOUS 84.3 % (60.0-85.0); ABG PCO2 VENOUS 44.4 mmHg (38.0-54.0); ABG PH (VENOUS) 7.364 (7.320-7.430); ABG PO2 VENOUS 50.7 mmHg (23.0-48.0); CL (ABG) 100 mmol/L (98-107); FCOHb VENOUS 0.3 % (0.5-1.5); FHHb VENOUS 15.6 %; FMetHb VENOUS 0.3 % (0.5-1.5); FO2Hb VENOUS 83.8 % (0-80.0); GLUCOSE (ABG) 114 mg/dl (65-95); IONIZED CA (ABG) 0.96 mmol/L (1.15-1.33); TOTAL HEMOGLOBIN 10.6 G/dl (13.5-17.5)
[2024-01-21 11:13] LABS: ABG BASE EXCESS 2.1 mmol/L (-2.0-3.0); ABG HCO3 27.5 mmol/L (21.0-28.0); ABG OXYGEN SATURATION 99.5 % (94.0-98.0); ABG PCO2 46.6 mmHg (35.0-48.0); ABG PH 7.389 (7.350-7.450); CL (ABG) 102 mmol/L (98-107); FCOHb 0.3 % (0.5-1.5); FHHb 0.5 % (0.0-5.0); FMetHb 0.3 % (0.0-1.5); FO2Hb 98.9 % (94.0-98.0); GLUCOSE (ABG) 121 mg/dl (65-95); IONIZED CA (ABG) 0.96 mmol/L (1.15-1.33); K (ABG) 3.8 mmol/L (3.40-4.50); TOTAL HEMOGLOBIN 10.6 G/dl (13.5-17.5)
[2024-01-21] MEDS: vancomycin 1,000mg inj ONE ×2 (11:18→12:41)
[2024-01-21] MEDS: vancomycin 1,000mg inj IVT ONE (11:18)
[2024-01-21] MEDS: ceFAZolin 1000mg inj ONE (11:18)
[2024-01-21 11:48] LABS: ABG BASE EXCESS 0.1 mmol/L (-2.0-3.0); ABG HCO3 24.4 mmol/L (21.0-28.0); ABG OXYGEN SATURATION 99.6 % (94.0-98.0); ABG PCO2 38.1 mmHg (35.0-48.0); ABG PH 7.424 (7.350-7.450); CL (ABG) 104 mmol/L (98-107); FCOHb 0.3 % (0.5-1.5); FHHb 0.4 % (0.0-5.0); FMetHb 0.3 % (0.0-1.5); GLUCOSE (ABG) 124 mg/dl (65-95); IONIZED CA (ABG) 1.05 mmol/L (1.15-1.33); K (ABG) 4.9 mmol/L (3.40-4.50); TOTAL HEMOGLOBIN 11.1 G/dl (13.5-17.5)
[2024-01-21 12:21] LABS: ACT @ 1.70 U 247 SEC (193-297); ACT @ 2.84 U 326 SEC (260-420); BASELINE ACT 131 SEC (101-148); PATIENT WEIGHT 79.0k KG
[2024-01-21 12:29] LABS: ABG BASE EXCESS 2.9 mmol/L (-2.0-3.0); ABG HCO3 27.6 mmol/L (21.0-28.0); ABG OXYGEN SATURATION 99.1 % (94.0-98.0); ABG PH 7.426 (7.350-7.450); CL (ABG) 103 mmol/L (98-107); FCOHb 0.2 % (0.5-1.5); FHHb 0.9 % (0.0-5.0); FMetHb 0.1 % (0.0-1.5); FO2Hb 98.8 % (94.0-98.0); GLUCOSE (ABG) 128 mg/dl (65-95); IONIZED CA (ABG) 1.44 mmol/L (1.15-1.33); K (ABG) 5.2 mmol/L (3.40-4.50)
[2024-01-21 12:57] LABS: ABG BASE EXCESS -2.2 mmol/L (-2.0-3.0); ABG HCO3 23.3 mmol/L (21.0-28.0); ABG PH 7.352 (7.350-7.450); CL (ABG) 106 mmol/L (98-107); FCOHb 0.3 % (0.5-1.5); FHHb 24.4 % (0.0-5.0); FMetHb 0.1 % (0.0-1.5); FO2Hb 75.2 % (94.0-98.0); GLUCOSE (ABG) 149 mg/dl (65-95); IONIZED CA (ABG) 1.16 mmol/L (1.15-1.33); K (ABG) 4.7 mmol/L (3.40-4.50); TOTAL HEMOGLOBIN 10.2 G/dl (13.5-17.5)
[2024-01-21 13:00] LABS: ACTIVATED CLOTTING TIME 132 SEC (101-148)
[2024-01-21] MEDS ORDERED: albumin (Human) 5% 250ml 250 ML IV ONE ×2 (13:11)
[2024-01-21] MEDS ORDERED: Neutra Phos packet PO PRN (13:15)
[2024-01-21] MEDS ORDERED: sodium phosphate inj. 30 MMOL in dextrose 5%-water 250 ML IV PRN (13:15)
[2024-01-21] MEDS ORDERED: nitroGLYCERIN-Tridil 50MG/D5W 250 ML IV PRN (13:15)
[2024-01-21] MEDS ORDERED: ondansetron/PF 4mg/2ml inj IV PRN (13:15)
[2024-01-21] MEDS: sodium chloride 0.45% 1,000 ML IV SCH (13:15)
[2024-01-21] MEDS ORDERED: dextrose 50%-water 50ml dispensing syringe IV PRN (13:15)
[2024-01-21] MEDS ORDERED: potassium Cl 40MEQ/1/2NS 520ml 520 ML IV PRN (13:15)
[2024-01-21] MEDS ORDERED: insulin glargine (Lantus) pen - multi-dose SQ PRN (13:15)
[2024-01-21] MEDS ORDERED: morphine 2 MG/ML inj. syringe IV PRN (13:15)
[2024-01-21] MEDS ORDERED: mineral oil 133ml enema RC PRN (13:15)
[2024-01-21] MEDS ORDERED: potassium Cl 20 mEq SR tablet PO PRN (13:15)
[2024-01-21] MEDS ORDERED: acetaminophen 325mg tablet PO PRN (13:15)
[2024-01-21] MEDS ORDERED: potassium CL 10mEq/100ml bag 100 ML IV PRN (13:15)
[2024-01-21] MEDS ORDERED: niCARDipine-NS 40mg/200ml IVPB 200 ML IV PRN (13:15)
[2024-01-21] MEDS: Insulin Reg/NS 100units/100mL 100 ML IV SCH (13:15)
[2024-01-21] MEDS ORDERED: bisacodyl 10mg suppository rectal RC PRN (13:15)
[2024-01-21] MEDS ORDERED: metoclopramide 5 mg/ml inj IV PRN (13:15)
--- NOTE | 2024-01-21 13:45 | NUR ---
Patient agitated and kicking R leg, patient has right femoral art line, line became dislogged, Art line D/C hematoma present, about the size of an apple. pressure held and pressure dressing applied
[2024-01-21 13:49] LABS: ABG BASE EXCESS -2.8 mmol/L (-2.0-3.0); ABG HCO3 21.9 mmol/L (21.0-28.0); ABG OXYGEN SATURATION 98.1 % (94.0-98.0); ABG PCO2 (T) 37.1 mmHg (35.0-48.0); ABG PH (T) 7.388 (7.350-7.450); FCOHb 0.1 % (0.5-1.5); FHHb 1.9 % (0.0-5.0); FMetHb 0.3 % (0.0-1.5); FO2Hb 97.7 % (94.0-98.0); MODE VENT - SIMV; PATIENT TEMPERATURE 36.8; PEEP 5 cm H2O; RESPIRATORY RATE 14 b/min; TIDAL VOLUME 500 mL
[2024-01-21 13:58] LABS: BASOPHILS % (AUTO) 0.2 % (0-1); EOSINOPHILS # (AUTO) 0.1 X10'3 (0-0.9); EOSINOPHILS % (AUTO) 0.6 % (0-6); HEMATOCRIT 31.6 % (42.0-52.0); HEMOGLOBIN 10.5 g/dl (14.0-17.9); LYMPHOCYTES # (AUTO) 0.7 X10'3 (1.1-4.8); MEAN CORPUSCULAR HGB CONC 33.1 g/dL (33.0-36.5); MEAN CORPUSCULAR VOLUME 93.7 FL (78-98); MEAN PLATELET VOLUME 8.9 FL (7.4-10.4); MONOCYTES # (AUTO) 0.7 X10'3 (0-0.9); NEUTROPHILS # (AUTO) 12.6 X10'3 (1.8-7.7); NEUTROPHILS % (AUTO) 89.2 % (42-75); PLATELET COUNT 75 X10'3 (140-440); RED BLOOD COUNT 3.37 X10'6 (4.70-6.10); RED CELL DISTRIBUTION WIDTH 14.6 % (11.5-14.5); WHITE BLOOD COUNT 14.2 X10'3 (4.5-11.0)
[2024-01-21 14:06] LABS: APTT 31 SECONDS (22-32); INR 1.5 INR; PROTHROMBIN TIME 15.5 SECONDS (9.0-12.0)
[2024-01-21 14:08] LABS: ALANINE AMINOTRANSFERASE 30 U/L (12-78); ALBUMIN 2.9 G/DL (3.4-5.0); ALBUMIN/GLOBULIN RATIO 1.5 (1.1-1.5); ALKALINE PHOSPHATASE 32 IU/L (46-116); ANION GAP 8 (8-16); ASPARTATE AMINO TRANSFERASE 43 U/L (10-37); BILIRUBIN,TOTAL 0.8 MG/DL (0.1-1.0); BLOOD UREA NITROGEN 19 MG/DL (7-18); BUN/CREATININE RATIO 21.6 (10.0-20.0); CHLORIDE 111 MMOL/L (99-107); CREATININE 0.88 MG/DL (0.60-1.10); GLUCOSE 145 MG/DL (70-104); MAGNESIUM 2.6 MG/DL (1.5-2.4); PHOSPHORUS 2.8 MG/DL (2.3-4.5); POTASSIUM 4.3 MMOL/L (3.5-5.1); SODIUM 144 MMOL/L (135-145); TOTAL CARBON DIOXIDE 24.8 MMOL/L (24-32); TOTAL PROTEIN 4.8 G/DL (6.4-8.2); eCRCL 81 ML/MIN; eGFR 85 ML/MIN
[2024-01-21] MEDS: potassium Cl 20mEq/100mL bag 100 ML IV PRN (14:23)
[2024-01-21] MEDS: albumin (Human) 5% 250ml 250 ML IV PRN (14:38)
[2024-01-21] MEDS: morphine 4 MG/ML inj SYRINge IV PRN (14:53)
--- NOTE | 2024-01-21 14:57 | NUR ---
Nutrition consult: Per EMR pt remains intubated s/p MVR and MAZE today. Pt would benefit from high protein nutrition therapy education as appropriate following extubation. Prior to OR pt was with 100% PO intake of meals on heart healthy diet, hopefully appetite will resume post-op. LBM 01/19 per EMR. Will continue to follow and make recommendations as appropriate. Recommendations: 1. Liberalize to no concentrated sweets diet as appropriate following extubation 2. Monitor need for ONS/additional protein 3. Routine bowel care 4. Weekly scaled weights 5. High protein nutrition therapy education as appropriate following extubation; s/p MVR and MAZE 01/20 Addendum: 01/21/24 at [address] Amended: Links added.
[2024-01-21] MEDS: amiodarone/D5 360MG/200ML BAG 200 ML IV SCH (15:02)
[2024-01-21] MEDS ORDERED: DEXMEDETOMIDINE IN 0.9 % NACL 50 ML IV SCH (15:45)
[2024-01-21] MEDS: dexmedetomidin/NS 400mcg/100ml 100 ML IV ONE (15:51)
[2024-01-21] MEDS: dexmedetomidin/NS 400mcg/100ml 100 ML IV SCH (15:51)
[2024-01-21] MEDS: DOBUTamine-DoBUTrex 500mg/D5W 250 ML IV SCH ×2 (16:00→19:38)
[2024-01-21] MEDS: ceFAZolin/D5W- 1GM premix 50 ML IV SCH (16:39)
[2024-01-21 16:40] LABS: ABG BASE EXCESS -4.2 mmol/L (-2.0-3.0); ABG HCO3 19.9 mmol/L (21.0-28.0); ABG PCO2 (T) 32.1 mmHg (35.0-48.0); ABG PH (T) 7.407 (7.350-7.450); ABG PO2 (T) 84.7 mmHg (83.0-108.0); FCOHb 0.2 % (0.5-1.5); FMetHb 0.3 % (0.0-1.5); FO2Hb 95.5 % (94.0-98.0); MODE VENT - CPAP; PATIENT TEMPERATURE 36.5; PEEP 8 cm H2O; TOTAL HEMOGLOBIN 10.6 G/dl (13.5-17.5)
--- NOTE | 2024-01-21 17:13 | NUR ---
Received to room 2009, accompanied by MD Hamilton and surgical crew. Placed on ventilator, to bus monitor, arterial line and PA line pressure zeroed & monitored. Chest tubes to suction at 20 cm. Castanon cath to gravity drainage. Dressings are dry and intact. See assessment record. All vasoactive drugs are infusing via central line.
[2024-01-21] MEDS: NORepinephrine 8mg/ 250ml NS 250 ML IV SCH (18:14)
--- NOTE | 2024-01-21 18:17 | NUR ---
Problems reprioritized. Patient report given, questions answered & plan of care reviewed with Alena PERDOMO.
--- NOTE | 2024-01-21 18:25 | NUR ---
Patient in room CICU 2008. I have received report from Noemi PERDOMO and had the opportunity to ask questions and assume patient care.
[2024-01-21 19:10] LABS: BASOPHILS % (AUTO) 0.1 % (0-1); EOSINOPHILS % (AUTO) 0.1 % (0-6); HEMATOCRIT 30.1 % (42.0-52.0); LYMPHOCYTES # (AUTO) 0.2 X10'3 (1.1-4.8); LYMPHOCYTES % (AUTO) 1.7 % (21-51); MEAN CORPUSCULAR HEMOGLOBIN 30.9 PG (27.0-31.0); MEAN CORPUSCULAR HGB CONC 33.4 g/dL (33.0-36.5); MEAN CORPUSCULAR VOLUME 92.7 FL (78-98); MEAN PLATELET VOLUME 8.7 FL (7.4-10.4); MONOCYTES # (AUTO) 0.5 X10'3 (0-0.9); MONOCYTES % (AUTO) 4.2 % (2-12); NEUTROPHILS # (AUTO) 11.8 X10'3 (1.8-7.7); NEUTROPHILS % (AUTO) 93.9 % (42-75); PLATELET COUNT 73 X10'3 (140-440); RED BLOOD COUNT 3.25 X10'6 (4.70-6.10); RED CELL DISTRIBUTION WIDTH 14.5 % (11.5-14.5); WHITE BLOOD COUNT 12.5 X10'3 (4.5-11.0)
[2024-01-21 19:19] LABS: ALBUMIN 3.6 G/DL (3.4-5.0); ANION GAP 10 (8-16); BLOOD UREA NITROGEN 20 MG/DL (7-18); BUN/CREATININE RATIO 19.4 (10.0-20.0); CALCIUM 8.2 MG/DL (8.5-10.1); CHLORIDE 112 MMOL/L (99-107); CREATININE 1.03 MG/DL (0.60-1.10); GLUCOSE 147 MG/DL (70-104); MAGNESIUM 2.2 MG/DL (1.5-2.4); PHOSPHORUS 1.8 MG/DL (2.3-4.5); POTASSIUM 3.7 MMOL/L (3.5-5.1); SODIUM 146 MMOL/L (135-145); TOTAL CARBON DIOXIDE 24.5 MMOL/L (24-32); eCRCL 65 ML/MIN; eGFR 71 ML/MIN
[2024-01-21] MEDS: ondansetron 4mg rapidly disintigrating tab PO PRN (19:21)
[2024-01-21] MEDS: vancomycin/NS 1 GM ADD-VANTAGE 250 ML IV SCH (20:32)
[2024-01-21] MEDS: sennosides/docusate sodium tablet PO SCH (20:32)
[2024-01-21] MEDS: atorvastatin 10mg tablet PO SCH (20:32)
[2024-01-21] MEDS: sodium phosphate inj. 15 MMOL in dextrose 5%-water 250 ML IV PRN (20:56)
[2024-01-21] MEDS: potassium Cl 40MEQ/270ML bag 250 ML IV PRN (21:42)
[2024-01-21] MEDS: magnesium sulf-water 4G/100mL 100 ML IV PRN (22:30)
[2024-01-21] MEDS: magnesium sulf-water 2g/50mL 50 ML IV PRN (22:45)
[2024-01-21] MEDS: HYDROcodone/acetaminophen 10/325mg tab PO PRN (23:03)
[2024-01-22] VITALS (30 sets, daily range): BP systolic 95–129; BP diastolic 53–80; PULSE 62–78; RESP 12–27; O2SAT 91–97
[2024-01-22 03:51] LABS: BASOPHILS % (AUTO) 0.1 % (0-1); EOSINOPHILS % (AUTO) 0 % (0-6); HEMATOCRIT 29.5 % (42.0-52.0); HEMOGLOBIN 9.9 g/dl (14.0-17.9); LYMPHOCYTES # (AUTO) 0.3 X10'3 (1.1-4.8); LYMPHOCYTES % (AUTO) 2.1 % (21-51); MEAN CORPUSCULAR HEMOGLOBIN 31.1 PG (27.0-31.0); MEAN CORPUSCULAR HGB CONC 33.5 g/dL (33.0-36.5); MEAN PLATELET VOLUME 9.1 FL (7.4-10.4); MONOCYTES # (AUTO) 0.5 X10'3 (0-0.9); MONOCYTES % (AUTO) 3.9 % (2-12); NEUTROPHILS # (AUTO) 12.7 X10'3 (1.8-7.7); NEUTROPHILS % (AUTO) 93.9 % (42-75); PLATELET COUNT 67 X10'3 (140-440); RED BLOOD COUNT 3.18 X10'6 (4.70-6.10); RED CELL DISTRIBUTION WIDTH 14.6 % (11.5-14.5); WHITE BLOOD COUNT 13.6 X10'3 (4.5-11.0)
[2024-01-22 04:02] LABS: ALANINE AMINOTRANSFERASE 32 U/L (12-78); ALBUMIN 3.4 G/DL (3.4-5.0); ALBUMIN/GLOBULIN RATIO 1.6 (1.1-1.5); ALKALINE PHOSPHATASE 32 IU/L (46-116); ANION GAP 10 (8-16); ASPARTATE AMINO TRANSFERASE 65 U/L (10-37); BILIRUBIN,TOTAL 0.6 MG/DL (0.1-1.0); BLOOD UREA NITROGEN 19 MG/DL (7-18); BUN/CREATININE RATIO 21.3 (10.0-20.0); CHLORIDE 110 MMOL/L (99-107); CREATININE 0.89 MG/DL (0.60-1.10); GLUCOSE 155 MG/DL (70-104); MAGNESIUM 2.6 MG/DL (1.5-2.4); PHOSPHORUS 3.3 MG/DL (2.3-4.5); POTASSIUM 4.4 MMOL/L (3.5-5.1); SODIUM 144 MMOL/L (135-145); TOTAL CARBON DIOXIDE 24.3 MMOL/L (24-32); TOTAL PROTEIN 5.5 G/DL (6.4-8.2); eCRCL 75 ML/MIN; eGFR 84 ML/MIN
--- NOTE | 2024-01-22 06:10 | NUR ---
Problems reprioritized. Patient report given, questions answered & plan of care reviewed with Anuradha PERDOMO.
[2024-01-22] MEDS: HYDROcodone/acetaminophen 10/325mg tab PO PRN (07:19)
[2024-01-22] MEDS: metoprolol tartrate 12.5mg (1/2 tablet) PO SCH (07:30)
[2024-01-22] MEDS: aspirin 81mg tab.chew PO SCH (08:16)
[2024-01-22] MEDS: amiodarone 200mg tablet PO SCH (08:16)
--- NOTE | 2024-01-22 16:06 | NUR ---
F/u for nutrition consult: Pt seen at bedside provided with written and verbal high protein nutrition therapy education. Pt reports low appetite post-op, documented with 100% PO intake of breakfast and 50% PO intake of lunch with mostly 100% PO intake pre-op, though declines ONS or food preferences at this time. Pt denies any difficulty chewing or swallowing. LBM 01/19 per EMR though pt denies feeling constipated and reports possible BM at this time and requests BSC, d/w RN. Pt provided with RD contact information and encouraged to reach out as needed. Will continue to follow. Addendum: 01/22/24 at [address] Amended: Links added.
[2024-01-23] VITALS (18 sets, daily range): BP systolic 104–127; BP diastolic 56–79; PULSE 70–78; RESP 12–24; TEMP 97.6–98.2; O2SAT 93–98
[2024-01-23 02:33] LABS: BASOPHILS % (AUTO) 0.1 % (0-1); EOSINOPHILS % (AUTO) 0 % (0-6); HEMATOCRIT 31.2 % (42.0-52.0); HEMOGLOBIN 10.2 g/dl (14.0-17.9); LYMPHOCYTES # (AUTO) 0.7 X10'3 (1.1-4.8); LYMPHOCYTES % (AUTO) 3.7 % (21-51); MEAN CORPUSCULAR HEMOGLOBIN 30.7 PG (27.0-31.0); MEAN CORPUSCULAR HGB CONC 32.8 g/dL (33.0-36.5); MEAN CORPUSCULAR VOLUME 93.4 FL (78-98); MEAN PLATELET VOLUME 9.3 FL (7.4-10.4); MONOCYTES # (AUTO) 1.6 X10'3 (0-0.9); MONOCYTES % (AUTO) 8.6 % (2-12); NEUTROPHILS % (AUTO) 87.6 % (42-75); PLATELET COUNT 85 X10'3 (140-440); RED BLOOD COUNT 3.34 X10'6 (4.70-6.10); RED CELL DISTRIBUTION WIDTH 14.7 % (11.5-14.5); WHITE BLOOD COUNT 18.3 X10'3 (4.5-11.0)
[2024-01-23 02:48] LABS: ALBUMIN 3.4 G/DL (3.4-5.0); ANION GAP 7 (8-16); BLOOD UREA NITROGEN 28 MG/DL (7-18); BUN/CREATININE RATIO 32.2 (10.0-20.0); CALCIUM 8.3 MG/DL (8.5-10.1); CHLORIDE 103 MMOL/L (99-107); CREATININE 0.87 MG/DL (0.60-1.10); GLUCOSE 143 MG/DL (70-104); MAGNESIUM 2.3 MG/DL (1.5-2.4); PHOSPHORUS 2.5 MG/DL (2.3-4.5); POTASSIUM 5.5 MMOL/L (3.5-5.1); SODIUM 136 MMOL/L (135-145); TOTAL CARBON DIOXIDE 26.5 MMOL/L (24-32); eCRCL 79 ML/MIN; eGFR 86 ML/MIN
--- NOTE | 2024-01-23 06:30 | NUR ---
Patient in room PCU 3011. I have received report from LEANNE Snyder and had the opportunity to ask questions and assume patient care.
[2024-01-23] MEDS: pantoprazole 40mg Tablet.DR PO SCH (08:32)
[2024-01-23] MEDS ORDERED: potassium CL 10mEq/100ml bag 100 ML IV PRN (08:50)
[2024-01-23] MEDS ORDERED: potassium Cl 40MEQ/1/2NS 520ml 520 ML IV PRN (08:50)
[2024-01-23] MEDS ORDERED: potassium Cl 20 mEq SR tablet PO PRN ×2 (08:50)
[2024-01-23] MEDS ORDERED: potassium Cl 20mEq/100mL bag 100 ML IV PRN (08:50)
[2024-01-23] MEDS ORDERED: magnesium sulf-water 4G/100mL 100 ML IV PRN (08:50)
[2024-01-23] MEDS ORDERED: magnesium sulf-water 2g/50mL 50 ML IV PRN (08:50)
[2024-01-23] MEDS ORDERED: potassium Cl 40MEQ/270ML bag 250 ML IV PRN (08:50)
--- NOTE | 2024-01-23 09:10 | NUR ---
Nutrition consult: Pt already seen by SILVERIO for written and verbal nutrition therapy education, please see prior note. Addendum: 01/23/24 at [address] Amended: Links added.
[2024-01-23] MEDS: furosemide 40mg/4ml inj IV ONE (10:19)
--- NOTE | 2024-01-23 11:01 | NUR ---
Notified by bedside RN that pt now agreeable to ONS. Pt seen at bedside, states appetite still hasn't improved post-op and is agreeable to Ensure. Recommend Ensure Enlive TID until appetite improves. Will continue to follow and adjust as appropriate. Addendum: 01/23/24 at [address] Amended: Links added.
--- NOTE | 2024-01-23 11:15 | NUR ---
Pt transferred to room 3011. Report called to LEANNE Chavez. Met by CRN at bedside. Pt placed on 2 L/min O2 via nasal cannula. Cell phone in his hand.
[2024-01-23] MEDS: lactose-reduced food (Ensure Enlive) - 237ml bottle PO SCH (13:32)
[2024-01-23] MEDS: heparin, porcine 5000 units/ml vial SQ SCH (16:00)
[2024-01-23] MEDS: magnesium hydroxide 30ml (MOM) UD suspension PO PRN (16:45)
--- NOTE | 2024-01-23 18:24 | NUR ---
Problems reprioritized. Patient report given, questions answered & plan of care reviewed with Brooke PERDOMO.
[2024-01-23] MEDS: magnesium Cl slow-release 64mg tablet PO SCH (20:23)
[2024-01-24] VITALS (9 sets, daily range): BP systolic 91–119; BP diastolic 57–69; PULSE 64–82; RESP 14–21; TEMP 97.5–99.2; O2SAT 94–99
--- NOTE | 2024-01-24 06:35 | NUR ---
Patient in room PCU 3011. I have received report from Ana PERDOMO and had the opportunity to ask questions and assume patient care.
[2024-01-24 06:58] LABS: BASOPHILS % (AUTO) 0 % (0-1); EOSINOPHILS % (AUTO) 0 % (0-6); HEMATOCRIT 30.8 % (42.0-52.0); HEMOGLOBIN 10.2 g/dl (14.0-17.9); LYMPHOCYTES # (AUTO) 0.6 X10'3 (1.1-4.8); LYMPHOCYTES % (AUTO) 4.2 % (21-51); MEAN CORPUSCULAR HEMOGLOBIN 30.6 PG (27.0-31.0); MEAN CORPUSCULAR HGB CONC 33.1 g/dL (33.0-36.5); MEAN CORPUSCULAR VOLUME 92.6 FL (78-98); MEAN PLATELET VOLUME 9.7 FL (7.4-10.4); MONOCYTES # (AUTO) 1.5 X10'3 (0-0.9); NEUTROPHILS # (AUTO) 12.7 X10'3 (1.8-7.7); NEUTROPHILS % (AUTO) 85.8 % (42-75); PLATELET COUNT 105 X10'3 (140-440); RED BLOOD COUNT 3.33 X10'6 (4.70-6.10); RED CELL DISTRIBUTION WIDTH 14.3 % (11.5-14.5); WHITE BLOOD COUNT 14.8 X10'3 (4.5-11.0)
--- NOTE | 2024-01-24 07:11 | NUR ---
Received call from radiologist Dr Dejesus regarding patient's CXR this AM showed a small right apical pneumothorax. Tenzin Hurtado PA-C notified. No orders received at this time.
[2024-01-24 07:14] LABS: ALBUMIN 3.2 G/DL (3.4-5.0); ANION GAP 9 (8-16); BLOOD UREA NITROGEN 24 MG/DL (7-18); BUN/CREATININE RATIO 38.7 (10.0-20.0); CALCIUM 8.5 MG/DL (8.5-10.1); CHLORIDE 102 MMOL/L (99-107); CREATININE 0.62 MG/DL (0.60-1.10); GLUCOSE 119 MG/DL (70-104); MAGNESIUM 2.2 MG/DL (1.5-2.4); POTASSIUM 4.5 MMOL/L (3.5-5.1); SODIUM 138 MMOL/L (135-145); eCRCL 111 ML/MIN; eGFR > 90 ML/MIN
[2024-01-24] MEDS: furosemide 40mg/4ml inj IV ONE (11:16)
--- NOTE | 2024-01-24 18:18 | NUR ---
Problems reprioritized. Patient report given, questions answered & plan of care reviewed with Marlon PERDOMO/Ned PERDOMO.
[2024-01-24] MEDS: acetaminophen 325mg tablet PO PRN (20:03)
[2024-01-25 02:00] VITALS: BP 106/68; PULSE 69; RESP 13; TEMP 98.4; O2SAT 97
[2024-01-25 06:00] VITALS: BP 118/70; PULSE 72; RESP 17; TEMP 98.9; O2SAT 99
[2024-01-25 07:14] LABS: ALBUMIN 2.9 G/DL (3.4-5.0); ANION GAP 9 (8-16); BLOOD UREA NITROGEN 26 MG/DL (7-18); BUN/CREATININE RATIO 38.8 (10.0-20.0); CALCIUM 8.5 MG/DL (8.5-10.1); CHLORIDE 103 MMOL/L (99-107); CREATININE 0.67 MG/DL (0.60-1.10); GLUCOSE 98 MG/DL (70-104); MAGNESIUM 1.8 MG/DL (1.5-2.4); SODIUM 140 MMOL/L (135-145); TOTAL CARBON DIOXIDE 28.5 MMOL/L (24-32); eCRCL 101 ML/MIN; eGFR > 90 ML/MIN
[2024-01-25 08:10] LABS: BASOPHILS % (AUTO) 0.2 % (0-1); EOSINOPHILS # (AUTO) 0.1 X10'3 (0-0.9); EOSINOPHILS % (AUTO) 1.2 % (0-6); HEMATOCRIT 31.4 % (42.0-52.0); HEMOGLOBIN 10.5 g/dl (14.0-17.9); LYMPHOCYTES # (AUTO) 0.9 X10'3 (1.1-4.8); LYMPHOCYTES % (AUTO) 7.4 % (21-51); MEAN CORPUSCULAR HEMOGLOBIN 31.2 PG (27.0-31.0); MEAN CORPUSCULAR HGB CONC 33.6 g/dL (33.0-36.5); MEAN CORPUSCULAR VOLUME 92.8 FL (78-98); MEAN PLATELET VOLUME 9.4 FL (7.4-10.4); MONOCYTES # (AUTO) 1.6 X10'3 (0-0.9); MONOCYTES % (AUTO) 12.9 % (2-12); NEUTROPHILS # (AUTO) 9.4 X10'3 (1.8-7.7); NEUTROPHILS % (AUTO) 78.3 % (42-75); PLATELET COUNT 130 X10'3 (140-440); RED BLOOD COUNT 3.38 X10'6 (4.70-6.10); RED CELL DISTRIBUTION WIDTH 14.3 % (11.5-14.5); WHITE BLOOD COUNT 12.1 X10'3 (4.5-11.0)
[2024-01-25] MEDS ORDERED: LOP12.5T PO ×2 (09:19→09:28)
[2024-01-25] MEDS ORDERED: HYDR-3972 PO (09:19)
[2024-01-25] MEDS ORDERED: AMI200T PO (09:19)
[2024-01-25] MEDS ORDERED: ASPI81TA53 PO (09:19)
[2024-01-25] MEDS: potassium Cl 20 mEq SR tablet PO PRN (09:51)
[2024-01-25 11:00] VITALS: BP 118/70; PULSE 80; RESP 18; TEMP 98.4; O2SAT 98
[2024-01-25] MEDS ORDERED: HYDR-3965 PO (13:40)
--- NOTE | 2024-01-25 14:30 | NUR ---
Pt D/C per CT surgical team. Pt stable and appropriate for discharge. PIVs removed, cannula intact. Tele discontinued. All belongings taken home by patient. Reviewed discharge instructions with patient and spouse, all questions and concerns addressed. RX e-scripted to [facility] preferred [facility] ([facility] Pt was wheeled down to lobby by staff nurse midwife and driven home by spouse.
[2024-01-28 15:18] LABS: ABG PO2 439.1 mmHg (83.0-108.0)
[2024-01-28 15:19] LABS: ABG PO2 408.1 mmHg (83.0-108.0)
[2024-01-28 15:20] LABS: ABG PO2 44.1 mmHg (83.0-108.0)
[2024-01-28 15:20] LABS: ABG PO2 387.8 mmHg (83.0-108.0)
[2024-01-28 15:21] LABS: ABG OXYGEN SATURATION 75.5 % (94.0-98.0)
== END 2024-01-25 14:30 | disposition home or self-care (01) | DRG 216 ==
LOC: ER 09:54 → ED HOLD 13:36 → EDBEDREQ 01-15 01:00 → PCU 3S 01-15 02:35 → CICU 2S 01-21 12:04 → PCU 3S 01-23 11:16
PROVIDERS: ADMIT Family Medicine; ATTEND Family Medicine
PROC: 4A023N7 Measurement of Cardiac Sampling and Pressure, Left Heart, Percutaneous Approach (ICD-10-PCS; principal; 2024-01-19)
PROC: B41F1ZZ Fluoroscopy of Right Lower Extremity Arteries using Low Osmolar Contrast (ICD-10-PCS; 2024-01-19)
PROC: B2111ZZ Fluoroscopy of Multiple Coronary Arteries using Low Osmolar Contrast (ICD-10-PCS; 2024-01-19)
PROC: B2151ZZ Fluoroscopy of Left Heart using Low Osmolar Contrast (ICD-10-PCS; 2024-01-19)
PROC: 02UG0JZ Supplement Mitral Valve with Synthetic Substitute, Open Approach (ICD-10-PCS; 2024-01-21)
PROC: 02580ZZ Destruction of Conduction Mechanism, Open Approach (ICD-10-PCS; 2024-01-21)
PROC: 02BG0ZZ Excision of Mitral Valve, Open Approach (ICD-10-PCS; 2024-01-21)
PROC: 5A1221Z Performance of Cardiac Output, Continuous (ICD-10-PCS; 2024-01-21)
PROC: B246ZZ4 Ultrasonography of Right and Left Heart, Transesophageal (ICD-10-PCS; 2024-01-21)
DX: I34.0 Nonrheumatic mitral (valve) insufficiency (principal); I50.31 Acute diastolic (congestive) heart failure; I42.9 Cardiomyopathy, unspecified; I34.1 Nonrheumatic mitral (valve) prolapse; I48.91 Unspecified atrial fibrillation; I34.81 Nonrheumatic mitral (valve) annulus calcification; E87.5 Hyperkalemia; I44.0 Atrioventricular block, first degree; E78.5 Hyperlipidemia, unspecified
CPT/HCPCS: 36415; 36600; 71045; 76376; 80048; 80053; 80061; 81003; 82330; 82435; 82803; 82947; 82948; 83036; 83735; 83880; 84100; 84132; 84295; 84443; 84484; 85018; 85025; 85347; 85610; 85730; 86885; 86900; 86901; 86920; 87081; 88300; 93005; 93306; 93308; 93312; 93325; 93460; 93880; 93970; 94002; 94010; 94760; 96365; 96375; 97116; 97161; 97530; 99152; 99153; 99285; A4333; A4615; A4618; A6213; A6258; A6402; A6449; A7000; A7048; C1751; C1769; G0378; J0282; J0690; J1170; J1200; J1250; J1644; J1650; J1815; J1940; J2060; J2150; J2250; J2270; J2704; J2720; J2919; J3010; J3370; J3475; J3480; J3490; J7030; J7040; J7050; J7060; J7120; P9045; P9047; Q9967

== ENCOUNTER 2024-08-26 10:08 | Inpatient (IN) | payer MEDICARE, MEDICAID ==
[~2024-08-26] VITALS: Ht 180.3 cm; Wt 59.8 kg
[~2024-08-26 10:08] MED LIST changes: +AMI200T PO; +ASPI81TA53 PO; -DILT-88 PO; +LOP12.5T PO
[2024-08-26 10:53] LABS: BASOPHILS # (AUTO) 0.1 X10'3 (0-0.2); EOSINOPHILS # (AUTO) 0.1 X10'3 (0-0.9); EOSINOPHILS % (AUTO) 1.2 % (0-6); HEMATOCRIT 45.1 % (42.0-52.0); HEMOGLOBIN 14.6 g/dl (14.0-17.9); LYMPHOCYTES # (AUTO) 1.3 X10'3 (1.1-4.8); LYMPHOCYTES % (AUTO) 11.8 % (21-51); MEAN CORPUSCULAR HEMOGLOBIN 29.9 PG (27.0-31.0); MEAN CORPUSCULAR HGB CONC 32.4 g/dL (33.0-36.5); MEAN CORPUSCULAR VOLUME 92.3 FL (78-98); MEAN PLATELET VOLUME 8.7 FL (7.4-10.4); MONOCYTES # (AUTO) 0.8 X10'3 (0-0.9); MONOCYTES % (AUTO) 7.7 % (2-12); NEUTROPHILS # (AUTO) 8.3 X10'3 (1.8-7.7); NEUTROPHILS % (AUTO) 78.3 % (42-75); PLATELET COUNT 407 X10'3 (140-440); RED BLOOD COUNT 4.89 X10'6 (4.70-6.10); RED CELL DISTRIBUTION WIDTH 14.7 % (11.5-14.5); WHITE BLOOD COUNT 10.6 X10'3 (4.5-11.0)
[2024-08-26 11:20] LABS: ALBUMIN 3.3 G/DL (3.4-5.0); ANION GAP 7 (8-16); BLOOD UREA NITROGEN 15 MG/DL (7-18); BUN/CREATININE RATIO 18.1 (10.0-20.0); CALCIUM 9.2 MG/DL (8.5-10.1); CHLORIDE 103 MMOL/L (99-107); CREATININE 0.83 MG/DL (0.60-1.10); GLUCOSE 98 MG/DL (70-104); POTASSIUM 4.2 MMOL/L (3.5-5.1); PRO BRAIN NATRIURETIC PEPTIDE 730 PG/ML (0-125); SODIUM 137 MMOL/L (135-145); TOTAL CARBON DIOXIDE 26.8 MMOL/L (24-32); eCRCL 67 ML/MIN; eGFR > 90 ML/MIN
[2024-08-26 11:51] LABS: MAGNESIUM 2.1 MG/DL (1.5-2.4)
[2024-08-26] MEDS: acetaminophen 325mg tablet PO ONE (12:06)
[2024-08-26] MEDS ORDERED: HYDROcodone/acetaminophen 10/325mg tab PO PRN (13:40)
[2024-08-26] MEDS ORDERED: mag hydrox/Alum hydrox/simeth 30ml oral suspension PO PRN (13:40)
[2024-08-26] MEDS ORDERED: potassium Cl 40MEQ/1/2NS 520ml 520 ML IV PRN (13:40)
[2024-08-26] MEDS ORDERED: magnesium sulf-water 2g/50mL 50 ML IV PRN (13:40)
[2024-08-26] MEDS ORDERED: acetaminophen 325mg tablet PO PRN ×2 (13:40)
[2024-08-26] MEDS ORDERED: potassium Cl 20 mEq SR tablet PO PRN ×2 (13:40)
[2024-08-26] MEDS ORDERED: ondansetron/PF 4mg/2ml inj IV PRN (13:40)
[2024-08-26] MEDS ORDERED: magnesium sulf-water 4G/100mL 100 ML IV PRN (13:40)
[2024-08-26] MEDS ORDERED: magnesium Cl slow-release 64mg tablet PO PRN (13:40)
[2024-08-26] MEDS ORDERED: HYDROcodone/acetaminophen 5mg/325mg tablet PO PRN (13:40)
[2024-08-26] MEDS ORDERED: magnesium hydroxide 30ml (MOM) UD suspension PO PRN (13:40)
[2024-08-26] MEDS ORDERED: AZIT-164 PO (14:04)
[2024-08-26] MEDS ORDERED: BENZ200C53 PO (14:04)
[2024-08-26] MEDS ORDERED: ASPI-1144 PO (14:05)
[2024-08-26 16:00] VITALS: BP 139/74; PULSE 82; RESP 16; TEMP 99.4; O2SAT 93
[2024-08-26 18:00] VITALS: BP 142/79; PULSE 85; RESP 16; TEMP 99.7; O2SAT 95
[2024-08-26] MEDS ORDERED: benzonatate 100mg capsule PO PRN (18:15)
[2024-08-26] MEDS: DOXYCYCLINE 100MG CAPSULE PO SCH (19:21)
[2024-08-26] MEDS: docusate sod 100mg capsule PO SCH (19:24)
[2024-08-26] MEDS: K and/or MAG REPLACEMENT MC SCH (19:25)
[2024-08-26 20:00] VITALS: RESP 16; O2SAT 95
[2024-08-26] MEDS ORDERED: enoxaparin 40mg/0.4ml syringe SQ SCH (20:00)
[2024-08-26 22:00] VITALS: BP 138/81; PULSE 87; RESP 18; TEMP 97.7; O2SAT 95
[2024-08-27 04:39] LABS: BASOPHILS # (AUTO) 0.1 X10'3 (0-0.2); BASOPHILS % (AUTO) 1.1 % (0-1); EOSINOPHILS # (AUTO) 0.1 X10'3 (0-0.9); EOSINOPHILS % (AUTO) 0.5 % (0-6); HEMOGLOBIN 13.4 g/dl (14.0-17.9); LYMPHOCYTES # (AUTO) 1.7 X10'3 (1.1-4.8); LYMPHOCYTES % (AUTO) 14.9 % (21-51); MEAN CORPUSCULAR HEMOGLOBIN 30.4 PG (27.0-31.0); MEAN CORPUSCULAR HGB CONC 33.6 g/dL (33.0-36.5); MEAN CORPUSCULAR VOLUME 90.4 FL (78-98); MEAN PLATELET VOLUME 7.9 FL (7.4-10.4); MONOCYTES # (AUTO) 1.2 X10'3 (0-0.9); NEUTROPHILS # (AUTO) 8.2 X10'3 (1.8-7.7); NEUTROPHILS % (AUTO) 72.5 % (42-75); PLATELET COUNT 364 X10'3 (140-440); RED BLOOD COUNT 4.42 X10'6 (4.70-6.10); WHITE BLOOD COUNT 11.3 X10'3 (4.5-11.0)
[2024-08-27 04:55] LABS: ALANINE AMINOTRANSFERASE 43 U/L (12-78); ALBUMIN 2.8 G/DL (3.4-5.0); ALBUMIN/GLOBULIN RATIO 0.7 (1.1-1.5); ALKALINE PHOSPHATASE 75 IU/L (46-116); ANION GAP 8 (8-16); ASPARTATE AMINO TRANSFERASE 34 U/L (10-37); BILIRUBIN,TOTAL 0.6 MG/DL (0.1-1.0); BLOOD UREA NITROGEN 15 MG/DL (7-18); BUN/CREATININE RATIO 16.5 (10.0-20.0); CALCIUM 8.6 MG/DL (8.5-10.1); CHLORIDE 103 MMOL/L (99-107); CREATININE 0.91 MG/DL (0.60-1.10); GLUCOSE 107 MG/DL (70-104); POTASSIUM 4.1 MMOL/L (3.5-5.1); SODIUM 136 MMOL/L (135-145); TOTAL CARBON DIOXIDE 24.7 MMOL/L (24-32); TOTAL PROTEIN 6.6 G/DL (6.4-8.2); eCRCL 61 ML/MIN; eGFR 82 ML/MIN
[2024-08-27 06:00] VITALS: BP 134/76; PULSE 80; RESP 16; TEMP 99; O2SAT 96
[2024-08-27] MEDS: aspirin 81mg tab.chew PO SCH (07:33)
[2024-08-27] MEDS: rivaroxaban 20mg tablet PO SCH (07:33)
[2024-08-27] MEDS: CefTRIAXone/D5W-Rocephin 1gm 50 ML IV SCH (07:33)
[2024-08-27 08:00] VITALS: RESP 16; RESP 18; O2SAT 95; O2SAT 97
[2024-08-27 10:00] VITALS: BP 113/68; PULSE 82; RESP 17; TEMP 99; O2SAT 92
[2024-08-27 18:00] VITALS: BP 134/76; PULSE 92; RESP 18; TEMP 98; O2SAT 95
[2024-08-27 20:00] VITALS: RESP 18; O2SAT 95
[2024-08-27 22:00] VITALS: BP 126/72; PULSE 94; RESP 18; TEMP 100.1; O2SAT 94
[2024-08-28 05:54] LABS: BASOPHILS # (AUTO) 0.1 X10'3 (0-0.2); BASOPHILS % (AUTO) 0.9 % (0-1); EOSINOPHILS # (AUTO) 0.1 X10'3 (0-0.9); EOSINOPHILS % (AUTO) 1.2 % (0-6); HEMOGLOBIN 14.5 g/dl (14.0-17.9); LYMPHOCYTES # (AUTO) 1.5 X10'3 (1.1-4.8); LYMPHOCYTES % (AUTO) 14.5 % (21-51); MEAN CORPUSCULAR HGB CONC 33.8 g/dL (33.0-36.5); MEAN CORPUSCULAR VOLUME 91.9 FL (78-98); MEAN PLATELET VOLUME 8.4 FL (7.4-10.4); MONOCYTES # (AUTO) 1.1 X10'3 (0-0.9); MONOCYTES % (AUTO) 10.8 % (2-12); NEUTROPHILS # (AUTO) 7.6 X10'3 (1.8-7.7); NEUTROPHILS % (AUTO) 72.6 % (42-75); PLATELET COUNT 368 X10'3 (140-440); RED BLOOD COUNT 4.68 X10'6 (4.70-6.10); RED CELL DISTRIBUTION WIDTH 14.3 % (11.5-14.5); WHITE BLOOD COUNT 10.5 X10'3 (4.5-11.0)
[2024-08-28 06:00] VITALS: BP 109/73; PULSE 85; RESP 20; TEMP 98.2; O2SAT 96
[2024-08-28 06:09] LABS: ALANINE AMINOTRANSFERASE 38 U/L (12-78); ALBUMIN 2.9 G/DL (3.4-5.0); ALBUMIN/GLOBULIN RATIO 0.7 (1.1-1.5); ALKALINE PHOSPHATASE 77 IU/L (46-116); ANION GAP 8 (8-16); ASPARTATE AMINO TRANSFERASE 23 U/L (10-37); BILIRUBIN,TOTAL 0.8 MG/DL (0.1-1.0); BLOOD UREA NITROGEN 18 MG/DL (7-18); BUN/CREATININE RATIO 22.5 (10.0-20.0); CALCIUM 8.8 MG/DL (8.5-10.1); CHLORIDE 104 MMOL/L (99-107); GLUCOSE 105 MG/DL (70-104); MAGNESIUM 2.1 MG/DL (1.5-2.4); POTASSIUM 4.2 MMOL/L (3.5-5.1); SODIUM 137 MMOL/L (135-145); TOTAL PROTEIN 6.8 G/DL (6.4-8.2); eCRCL 70 ML/MIN; eGFR > 90 ML/MIN
[2024-08-28 08:00] VITALS: RESP 18; O2SAT 96
[2024-08-28 10:00] VITALS: BP 113/80; PULSE 94; RESP 16; TEMP 97.6; O2SAT 95
[2024-08-28] MEDS ORDERED: LEVO-65 PO (17:24)
== END 2024-08-28 18:26 | disposition home or self-care (01) | DRG 194 ==
LOC: ER 10:08 → ED HOLD 13:53 → SUR 3N 16:11
PROVIDERS: ADMIT Family Medicine; ATTEND Family Medicine
DX: J15.9 Unspecified bacterial pneumonia (principal); E44.0 Moderate protein-calorie malnutrition; I50.22 Chronic systolic (congestive) heart failure; R65.10 Systemic inflammatory response syndrome (SIRS) of non-infectious origin without acute organ dysfunction; Z68.1 Body mass index [BMI] 19.9 or less, adult; I48.0 Paroxysmal atrial fibrillation; Z20.822 Contact with and (suspected) exposure to COVID-19; J40 Bronchitis, not specified as acute or chronic; Z79.82 Long term (current) use of aspirin; Z79.01 Long term (current) use of anticoagulants; Z79.899 Other long term (current) drug therapy; Z80.8 Family history of malignant neoplasm of other organs or systems
CPT/HCPCS: 36415; 71046; 71250; 80048; 80053; 83605; 83735; 83880; 84145; 85025; 87040; 87081; 87502; 87503; 87811; 93306; 99285; G0378; J0696; J7030